=== PATIENT | female | born 1950 | race Caucasian/White ===

== ENCOUNTER 2017-05-14 10:45 | Outpatient (CLI) | payer MEDICARE ==
--- NOTE | 2017-05-15 16:35 | Mammography Report ---
DIGITAL SCREENING MAMMOGRAM: 05/14/2017 CLINICAL INDICATION: A 67-year-old nulliparous patient with history of reduction mammoplasty for scr eening. COMPARISON: 05/2014, 08/2012, 08/2011, 08/2010. TECHNIQUE: Routine CC and MLO projections were obtained of the breasts. The breasts again demonstrate heterogeneously dense fibroglandular parenchyma bilaterally. Postreduc tion changes are stable. Coarse, typically benign calcifications are present. No suspicious masses, clustered microcalcifications, or regions of architectural distortion are identified. IMPRESSION: BENIGN FINDINGS. RECOMMENDATION: ROUTINE ANNUAL SCREENING UNLESS OTHERWISE CLINICALLY INDICATED. BIRADS CATEGORY: 2, BENIGN FINDINGS. STANDARD QUALIFYING STATEMENTS 1. This examination was reviewed with the aid of Computed-Aided Detection (CAD). 2. A negative or benign imaging report should not delay biopsy if clinically suspicious findings are present. Consider surgical consultation if warranted. More than 5% of cancers are not identified b y imaging. 3. Dense breasts may obscure an underlying neoplasm. JOB #: [id number] EXT JOB #:[id number]
== END 2017-05-14 10:46 | disposition home or self-care (01) ==
LOC: DI 10:45
PROVIDERS: ATTEND Family Medicine
DX: Z12.39 Encounter for other screening for malignant neoplasm of breast (principal)
CPT/HCPCS: 77067

== ENCOUNTER 2018-09-09 10:53 | Outpatient (CLI) | payer MEDICARE ==
--- NOTE | 2018-09-10 08:45 | Mammography Report ---
Reason: SCREENING MAMMO Procedure Date: 09/09/2018 Accession Number: [id number] / [id number] Procedure: SUSIE - Screening Mammo Dig Bilat CPT Code: FULL RESULT: EXAM: Screening Mammo Dig Bilat DATE: 09/09/2018 11:31 AM CLINICAL HISTORY: 68 year-old nulliparous female. TECHNIQUE: Bilateral CC and MLO views were obtained. COMPARISON: 05/14/2017, 05/31/2014, 09/16/2012, 08/13/2011. FINDINGS: The breasts demonstrate heterogeneously dense fibroglandular parenchyma bilaterally. Coarse typically benign bilateral calcifications are redemonstrated. No suspicious masses, clustered microcalcifications, or regions of architectural distortion are identified. IMPRESSION: Benign findings RECOMMENDATION: Routine annual screening unless otherwise clinically indicated. BIRADS CATEGORY 2: Benign findings STANDARD QUALIFYING STATEMENTS: 1. This examination was not reviewed with the aid of Computer-Aided Detection (CAD). 2. A negative or benign imaging report should not delay biopsy if clinically suspicious findings are present. Consider surgical consultation if warrented. More than 5% of cancers are not identified by imaging. 3. Dense breasts may obscure an underlying neoplasm. 4. This examination was reviewed without the aid of 3D breast imaging (tomosynthesis).
== END 2018-09-09 10:54 | disposition home or self-care (01) ==
LOC: DI 10:53
DX: Z12.31 Encounter for screening mammogram for malignant neoplasm of breast (principal)
CPT/HCPCS: 77067

== ENCOUNTER 2019-10-11 07:47 | Outpatient (CLI) | payer MEDICARE ==
--- NOTE | 2019-10-11 08:26 | Mammography Report ---
Reason: ROUTINE MAMMO Procedure Date: 10/11/2019 Accession Number: [id number] / [id number] Procedure: SUSIE - Screening Mammo w/Dariel CPT Code: Final Report FULL RESULT: EXAM: Screening Mammo w/Dariel DATE: 10/11/2019 8:16 AM CLINICAL HISTORY: Routine screening. No reported personal or family history of breast cancer. TECHNIQUE: (B) - Bilateral CC and MLO views were obtained. COMPARISON: 09/09/2018 through 09/05/2010. PARENCHYMAL PATTERN: (A) - The breasts demonstrate scattered fibroglandular densities bilaterally. FINDINGS: Bilateral breasts: There are stable bilateral mastopexy changes. There are no suspicious masses, calcifications, or areas of distortion. IMPRESSION: Benign findings. BI-RADS category 2. RECOMMENDATION: (ANNUAL) - Recommend routine annual screening mammography. BI-RADS CATEGORY: (2) - Benign Findings. STANDARD QUALIFYING STATEMENTS: 1. This examination was not reviewed with the aid of Computer-Aided Detection (CAD). 2. A negative or benign imaging report should not preclude biopsy if clinically suspicious findings are present. 3. Dense breasts may obscure an underlying neoplasm. 4. This examination was reviewed with the aid of 3D breast imaging (tomosynthesis).
== END 2019-10-11 07:48 | disposition home or self-care (01) ==
LOC: DI 07:47
DX: Z12.31 Encounter for screening mammogram for malignant neoplasm of breast (principal)
CPT/HCPCS: 77063; 77067

== ENCOUNTER 2021-04-07 20:46 | Outpatient (CLI) | payer MEDICARE | END 2021-04-07 20:47 | disposition critical access hospital (66) | LOC: EMS 20:46 | DX: S09.90XA Unspecified injury of head, initial encounter (principal); R11.0 Nausea; R42 Dizziness and giddiness; M54.2 Cervicalgia; M25.532 Pain in left wrist; W19.XXXA Unspecified fall, initial encounter; Y92.009 Unspecified place in unspecified non-institutional (private) residence as the place of occurrence of the external cause | CPT/HCPCS: A0425; A0427 ==

== ENCOUNTER 2021-04-07 21:20 | Emergency (ER) | payer MEDICARE ==
[2021-04-07 22:24] LABS: BASOPHILS # (AUTO) 0.1 10^3/uL (0.0-0.1); BASOPHILS % (AUTO) 0.9 %; EOSINOPHILS # (AUTO) 0.2 10^3/uL (0.0-0.7); EOSINOPHILS % (AUTO) 2.8 %; HCT - HEMATOCRIT 37.9 % (37.0-47.0); HGB - HEMOGLOBIN 12.5 g/dL (12.0-16.0); LYMPHOCYTES # (AUTO) 1.9 10^3/uL (1.5-3.5); LYMPHOCYTES % (AUTO) 35.7 %; MEAN CORPUSCULAR HEMOGLOBIN 27.6 pg (27.0-31.0); MEAN CORPUSCULAR VOLUME 83.7 fL (81.0-99.0); MEAN PLATELET VOLUME 9.7 fL (7.9-10.8); MONOCYTES # (AUTO) 0.4 10^3/uL (0.0-1.0); MONOCYTES % (AUTO) 6.8 %; NEUTROPHILS # (AUTO) 2.9 10^3/uL (1.5-6.6); NEUTROPHILS % (AUTO) 53.8 %; PLT - PLATELET COUNT 237 10^3/uL (130-450); RED BLOOD COUNT 4.53 10^6/uL (4.20-5.40); RED CELL DISTRIBUTION WIDTH 16.6 % (12.0-15.0); WHITE BLOOD COUNT 5.4 x10^3/uL (4.8-10.8)
[2021-04-07] MEDS ORDERED: lamoTRIgine 25 MG TABLET PO STA (22:54)
--- NOTE | 2021-04-07 22:54 | ED Physician Documentation ---
PD HPI SYNCOPE - Stated complaint Stated Complaint: SYNCOPE/ HEAD LAC - Chief complaint Chief Complaint: Neuro - History obtained from History obtained from: Patient, Family, EMS - History of Present Illness Witnessed: Witnessed Timing - onset: Today Duration: Seconds Preceding symptoms: None Associated symptoms: Nausea / vomiting. No: Seizure, Incontinant of urine, Incontinant of stool Contributing factors: Recent med change Injury occurred: Fell, Head injury, Neck injury. No: Bit tongue Similar symptoms before: Has not had sx before Recently seen: Not recently seen - Additional information Additional information: Previously well 71-year-old female with a seizure disorder has been drinking this evening and she went to go up and walk around the edge of the table and fell and landed hitting her forehead on a chair. She has a contusion and abrasion to her forehead on the left side without laceration. She did not have loss of consciousness and was immediately attended to by her who was in the room but did not see the fall. She did not appear to have seizure. She has not been taking her seizure medicines for the past 3 days. She admits to drinking. She states she is not otherwise ill. Her biggest complaint is some pain in her left wrist. Review of Systems Constitutional: denies: Fever Eyes: denies: Decreased vision Ears: denies: Ear pain Nose: denies: Congestion Throat: denies: Sore throat Cardiac: denies: Chest pain / pressure, Palpitations Respiratory: denies: Dyspnea, Cough GI: reports: Nausea, Vomiting. denies: Abdominal Pain, Diarrhea : denies: Dysuria, Frequency Skin: denies: Rash Musculoskeletal: reports: Neck pain, Extremity pain, Joint pain, Joint swelling. denies: Back pain Neurologic: denies: Generalized weakness, Focal weakness, Numbness PD PAST MEDICAL HISTORY - Past Medical History Past Medical History: Yes Cardiovascular: None Respiratory: None Neuro: Seizure disorder Endocrine/Autoimmune: HyPOthyroidism GI: None [employer]: None : None Psych: Depression, Anxiety Musculoskeletal: None Derm: None - Past Surgical History Past Surgical History: Yes Ortho: Hip replacement /[employer]: Other HEENT: Tonsil/Adenoidectomy, Other - Present Medications Home Medications: Ambulatory Orders Medication Instructions Recorded Confirmed Aspirin [Aspir 81] 81 mg ORAL DAILY 05/06/14 04/07/21 Levothyroxine [Synthroid] 75 mcg ORAL DAILY 05/06/14 04/07/21 Escitalopram [Lexapro] 10 mg PO DAILY 04/07/21 04/07/21 Lacosamide [Vimpat] 100 mg PO BID 04/07/21 04/07/21 - Allergies Allergies/Adverse Reactions: Allergies Allergy/AdvReac Type Severity Reaction Status Date / Time lamotrigine [From Lamictal] Allergy Unknown Verified 04/07/21 22:58 Penicillins Allergy Hives Verified 04/07/21 21:35 Sulfa (Sulfonamide Allergy Hives Verified 04/07/21 21:35 Antibiotics) - Social History Does the pt smoke?: No Smoking Status: Never smoker Does the pt drink ETOH?: Yes Does the pt have substance abuse?: No - Immunizations Immunizations are current?: Yes - POLST Patient has POLST: No PD ED PE NORMAL - Vitals Vital signs reviewed: Yes (Hypertensive) - General General: Alert and oriented X 3, No acute distress, Well developed/nourished - HEENT HEENT: PERRL, EOMI, Other (There is an abrasion to the left scientology. There is no crepitance or step-off.) - Neck Neck: Supple, no meningeal sign, Other (There is pain to the mid cervical spine directly over the bones.There is fair range of motion of the neck.) - Cardiac Cardiac: RRR, No murmur - Respiratory Respiratory: No respiratory distress, Clear bilaterally - Abdomen Abdomen: Soft, Non tender - Back Back: No CVA TTP, No spinal TTP - Derm Derm: Normal color, Warm and dry, No rash - Extremities Extremities: Other (There is swelling and tenderness to the dorsal wrist on the left side there is pain to the anatomic snuffbox and the distal neurovascular components are intact. 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, No motor deficit, No sensory deficit, Normal speech Eye Opening: Spontaneous Motor: Obeys Commands Verbal: Oriented GCS Score: 15 - Psych Psych: Normal mood, Normal affect Results - Vitals Vitals: Vital Signs - 24 hr 04/07/21 04/07/21 04/07/21 21:20 21:57 22:10 Temperature 35.7 C L Heart Rate 69 67 60 Respiratory 14 15 16 Rate Blood Pressure 137/93 H 136/84 H 126/73 O2 Saturation 100 100 100 04/07/21 04/07/21 04/07/21 22:47 23:00 23:35 Temperature 364 C H 36.5 C Heart Rate 64 60 61 Respiratory 19 16 12 Rate Blood Pressure 122/75 122/79 122/79 O2 Saturation 100 100 100 Oxygen O2 Source Room air - EKG (time done) 2127 Rate: Rate (enter#) (59) Rhythm: NSR Ischemia: Normal ST segments Compare to prior EKG: Old EKG unavailable Computer interpretation: Agree with computer - Labs Labs: Laboratory Tests 04/07/21 04/07/21 04/07/21 22:18 22:18 22:18 WBC 5.4 RBC 4.53 Hgb 12.5 Hct 37.9 MCV 83.7 MCH 27.6 MCHC 33.0 RDW 16.6 H Plt Count 237 MPV 9.7 Neut # (Auto) 2.9 Lymph # (Auto) 1.9 [place] # (Auto) 0.4 Eos # (Auto) 0.2 Baso # (Auto) 0.1 Absolute Nucleated RBC 0.00 Nucleated RBC % 0.0 Sodium 138 Potassium 3.5 Chloride 101 Carbon Dioxide 22 Anion Gap 15.0 H BUN 19 Creatinine 0.8 Estimated GFR (MDRD) 71 L Glucose 97 Calcium 9.1 Total Bilirubin 0.5 AST 26 ALT 17 Alkaline Phosphatase 67 Troponin I High Sens 4.5 Total Protein 6.7 Albumin 4.2 Globulin 2.5 Albumin/Globulin Ratio 1.7 Lipase 940 H Ethyl Alcohol 04/07/21 22:18 WBC RBC Hgb Hct MCV MCH MCHC RDW Plt Count MPV Neut # (Auto) Lymph # (Auto) [place] # (Auto) Eos # (Auto) Baso # (Auto) Absolute Nucleated RBC Nucleated RBC % Sodium Potassium Chloride Carbon Dioxide Anion Gap BUN Creatinine Estimated GFR (MDRD) Glucose Calcium Total Bilirubin AST ALT Alkaline Phosphatase Troponin I High Sens Total Protein Albumin Globulin Albumin/Globulin Ratio Lipase Ethyl Alcohol 182.5 - Rads (name of study) CT head without Radiology: Prelim report reviewed (Impression: No acute hemorrhage.), EMP read indepedently, See rad report CT cervical spine Radiology: Prelim report reviewed (Impression: No definite acute fractures.), EMP read indepedently, See rad report Left wrist Radiology: Prelim report reviewed (Impression: Fractures of the distal radius and ulnar styloid.), EMP read indepedently, See rad report Procedures - Splint (location) left wrist Splint applied by: Tech Type of splint: Fiberglass, Volar cock up Other: Patient tolerated well, No complications, Neurovascular intact PD MEDICAL DECISION MAKING - ED course Complexity details: reviewed results, re-evaluated patient, considered differential, d/w patient ED course: 71-year-old female has taken a fall while intoxicated and she has broken her left wrist. She did contused her head she had some vomiting here in the emergency department and a CT scan of the head and neck were obtained without evidence of fracture or dislocation. There was a question about seizure and they patient's indicates he believes this was a fall and not syncope or a seizure. No evidence of intracranial hemorrhage. She is placed into a volar splint and instructed to follow-up with orthopedics for casting within the week. Departure - Departure Disposition: 01 Home, Self Care Clinical Impression: Concussion Qualifiers: Encounter type: initial encounter Loss of consciousness presence/duration: without LOC Qualified Code(s): S06.0X0A - Concussion without loss of consciousness, initial encounter Cervical strain, acute Qualifiers: Encounter type: initial encounter Qualified Code(s): S16.1XXA - Strain of muscle, fascia and tendon at neck level, initial encounter Wrist fracture, left Qualifiers: Encounter type: initial encounter Fracture type: closed Qualified Code(s): S62.102A - Fracture of unspecified carpal bone, left wrist, initial encounter for closed fracture Condition: Stable Instructions: ED Concussion, ED Sprain Strain Neck, ED Fx Wrist General Follow-Up: Sundeep Johnston MD [Provider Admit Priv/Credential] - Katelynn Lentz MD [Primary Care Provider] - Discharge Date/Time: 04/07/21 23:35
[2021-04-07 22:58] LABS: ALBUMIN 4.2 g/dL (3.2-5.5); ALBUMIN/GLOBULIN RATIO 1.7 (1.0-2.2); BILIRUBIN,TOTAL 0.5 mg/dL (0.2-1.0); CALCIUM 9.1 mg/dL (8.5-10.3); CREATININE 0.8 mg/dL (0.4-1.0); POTASSIUM 3.5 mmol/L (3.5-5.0); TOTAL PROTEIN 6.7 g/dL (6.7-8.2)
[2021-04-07 23:05] VITALS: BP 122/79
--- NOTE | 2021-04-08 08:15 | XRAY Report ---
PROCEDURE: Wrist 4 View LT INDICATIONS: FOOSH dorsal pain pain in snuffbox TECHNIQUE: 4 views of the wrist were acquired. COMPARISON: None FINDINGS: Bones: There is a mildly displaced, comminuted, irregular fracture seen of the distal radius, with mi ld volar angulation. There is intra-articular involvement. There is a mildly displaced ulnar styloid fracture also seen. Focal degenerative change is seen involving the carpometacarpal joint, with milder degenerative jj es seen elsewhere. No suspicious bony lesions. Scaphoid view: No scaphoid fractures are seen. Soft tissues: No suspicious soft tissue calcifications. IMPRESSION: Comminuted, intra-articular fracture of the distal radius, with mild volar angulation. A small accompanying ulnar styloid fracture is also seen. Note: No significant discrepancy from the preliminary report. Reviewed by: Vega Washington MD on 04/08/2021 7:13 AM JOSE ROBERTO Approved by: Vega Washington MD on 04/08/2021 7:13 AM JOSE ROBERTO Station ID: [id number]
--- NOTE | 2021-04-08 08:22 | CT Report ---
PROCEDURE: CERVICAL SPINE WO INDICATIONS: head injury neck pain TECHNIQUE: Noncontrast 3 mm thick sections acquired from the skull base to the T4 level. Sagittal and coronal r eformats were then constructed. For radiation dose reduction, the following was used: automated exp osure control, adjustment of mA and/or kV according to patient size. COMPARISON: Correlation is made with the accompanying head CT, 04/07/2021. FINDINGS: Image quality: Motion artifact is noted. Bones: No fractures or dislocations. Visualized superior ribs are intact. Degenerative changes are seen, with at least moderate disc space narrowing at C4-C5 and C5-C6. Focal degenerative change can also be seen involving the C1-C2 interface anteriorly. Milder degenerative ch anges are seen elsewhere. Soft tissues: Prevertebral soft tissues are normal in thickness. No paravertebral hematomas. No ap ical pneumothoraces. IMPRESSION: No fracture can be seen, although this study is limited by motion artifact. Degenerative changes are seen, which are worst inferiorly. Note: No significant discrepancy from the preliminary report. Reviewed by: Vega Washington MD on 04/08/2021 7:21 AM JOSE ROBERTO Approved by: Vega Washington MD on 04/08/2021 7:21 AM JOSE ROBERTO Station ID: [id number]
--- NOTE | 2021-04-08 08:36 | CT Report ---
PROCEDURE: HEAD WO INDICATIONS: Head injury, vomiting TECHNIQUE: Noncontrast 4.5 mm thick angled axial sections acquired from the foramen magnum to the vertex. For r adiation dose reduction, the following was used: automated exposure control, adjustment of mA and/or kV according to patient size. COMPARISON: None. FINDINGS: Image quality: Excellent. CSF spaces: Basal cisterns are patent. No extra-axial fluid collections. Ventricles are normal in size and shape. Brain: No midline shift. No intracranial masses or hemorrhage. Vega-white matter interface is norm al. Mild global cerebral volume loss and chronic microvascular ischemic changes. Skull and face: Calvarium and visualized facial bones are intact, without suspicious lesions. Sinuses: Visualized sinuses and mastoids are clear. IMPRESSION: No acute intracranial finding. No significant change from preliminary report. Reviewed by: Caden Stephenson MD on 04/08/2021 8:35 AM PDT Approved by: Caden Stephenson MD on 04/08/2021 8:35 AM PDT Station ID: [id number]
== END 2021-04-07 23:35 | disposition home or self-care (01) ==
LOC: EDUNIT# → ED 21:20 → SUPCPDRO 21:20 → ED 23:35
DX: S52.572A Other intraarticular fracture of lower end of left radius, initial encounter for closed fracture (principal); S16.1XXA Strain of muscle, fascia and tendon at neck level, initial encounter; S06.0X0A Concussion without loss of consciousness, initial encounter; W18.30XA Fall on same level, unspecified, initial encounter; W22.03XA Walked into furniture, initial encounter; Y93.01 Activity, walking, marching and hiking; Y92.009 Unspecified place in unspecified non-institutional (private) residence as the place of occurrence of the external cause
CPT/HCPCS: 29125; 36415; 70450; 72125; 73110; 80053; 83690; 84484; 85025; 93005; 99284; G0480; 80320

== ENCOUNTER 2022-04-08 08:00 | Outpatient (CLI) | payer MEDICARE ==
--- NOTE | 2022-04-08 14:28 | XRAY Report ---
PROCEDURE: Toe(s) LT INDICATIONS: PAIN IN LEFT TOES TECHNIQUE: AP view of the foot and 2 views of the second through fourth toes. COMPARISON: None. FINDINGS: Bones: No displaced intra-articular fracture at the base of the second middle phalanx. A minimally di splaced articular fracture is also seen at the medial portion of the second proximal phalangeal head. Scattered degenerative changes are seen in the interphalangeal joints of the toes. No suspicious bon y lesions. Soft tissues: No suspicious soft tissue densities. IMPRESSION: Minimally displaced intra-articular fractures at the base of the second middle phalanx and the second proximal phalangeal head, both extending into the proximal interphalangeal joint. Reviewed by: Todd Gerard MD on 04/08/2022 2:27 PM PDT Approved by: Todd Gerard MD on 04/08/2022 2:27 PM PDT Station ID: [id number]
--- NOTE | 2022-04-08 14:30 | XRAY Report ---
PROCEDURE: Foot 3 View LT INDICATIONS: LEFT FOOT PAIN TECHNIQUE: 3 views of the foot were acquired. COMPARISON: Left toe radiographs performed the same time.. FINDINGS: Bones: Generalized osteopenia. Minimally displaced fractures are seen at the second middle phalangea l base and the second proximal phalangeal head, slightly better demonstrated on the toe radiographs p erformed at the same time. No suspicious bony lesions. Scattered degenerative changes are seen throu ghout the interphalangeal joints of the toes. Mild first metatarsophalangeal joint osteoarthrosis. Soft tissues: Mild soft tissue edema in the second toe. IMPRESSION: Minimally displaced fractures of the second proximal phalangeal head and second middle phalangeal bas e extending into the second proximal interphalangeal joint. Reviewed by: Todd Gerard MD on 04/08/2022 2:28 PM PDT Approved by: Todd Gerard MD on 04/08/2022 2:28 PM PDT Station ID: [id number]
== END 2022-04-08 23:59 | disposition home or self-care (01) ==
LOC: DI.S 08:00
PROVIDERS: ATTEND Physician Assistant Medical
DX: S92.512A Displaced fracture of proximal phalanx of left lesser toe(s), initial encounter for closed fracture (principal)
CPT/HCPCS: 73660

== ENCOUNTER 2022-08-26 10:01 | Outpatient (CLI) | payer MEDICARE ==
[2022-08-26 15:14] LABS: THYROID STIMULATING HORMONE 2.98 uIU/mL (0.34-5.60)
[2022-08-26 15:16] LABS: FREE T4 (FREE THYROXINE) 0.57 ng/dL (0.58-1.64)
== END 2022-08-26 10:02 | disposition home or self-care (01) ==
LOC: LAB.S 10:01
PROVIDERS: ATTEND Internal Medicine
DX: E03.9 Hypothyroidism, unspecified (principal)
CPT/HCPCS: 36415; 84439; 84443

== ENCOUNTER 2022-12-06 07:00 | Outpatient (CLI) | payer MEDICARE ==
[2022-12-06 19:56] LABS: THYROID STIMULATING HORMONE 4.37 uIU/mL (0.34-5.60)
[2022-12-06 19:58] LABS: FREE T4 (FREE THYROXINE) 0.69 ng/dL (0.58-1.64)
== END 2022-12-06 23:59 | disposition home or self-care (01) ==
LOC: LAB.S 07:00
PROVIDERS: ATTEND Internal Medicine
DX: E03.8 Other specified hypothyroidism (principal)
CPT/HCPCS: 36415; 84439; 84443

== ENCOUNTER 2023-03-13 08:00 | Outpatient (CLI) | payer MEDICARE | END 2023-03-13 23:59 | disposition home or self-care (01) | LOC: LAB.S 08:00 | PROVIDERS: ATTEND Physician Assistant Medical | DX: R35.0 Frequency of micturition (principal); R10.9 Unspecified abdominal pain | CPT/HCPCS: 87086 ==

== ENCOUNTER 2023-06-23 10:08 | Outpatient (CLI) | payer MEDICARE ==
[2023-06-23 15:14] LABS: EOSINOPHILS # (AUTO) 0.2 10^3/uL (0.0-0.7); EOSINOPHILS % (AUTO) 5.1 %; HCT - HEMATOCRIT 42.7 % (37.0-47.0); HGB - HEMOGLOBIN 13.4 g/dL (12.0-16.0); LYMPHOCYTES # (AUTO) 1.9 10^3/uL (1.5-3.5); MEAN CORPUSCULAR HEMOGLOBIN 29.7 pg (27.0-31.0); MEAN CORPUSCULAR HGB CONC 31.4 g/dL (32.0-36.0); MEAN CORPUSCULAR VOLUME 94.7 fL (81.0-99.0); MONOCYTES # (AUTO) 0.3 10^3/uL (0.0-1.0); MONOCYTES % (AUTO) 7.9 %; NEUTROPHILS # (AUTO) 1.5 10^3/uL (1.5-6.6); NEUTROPHILS % (AUTO) 38.7 %; PLT - PLATELET COUNT 231 10^3/uL (130-450); RED BLOOD COUNT 4.51 10^6/uL (4.20-5.40); RED CELL DISTRIBUTION WIDTH 13.1 % (12.0-15.0); WHITE BLOOD COUNT 3.9 x10^3/uL (4.8-10.8)
[2023-06-23 15:39] LABS: ALBUMIN 4.4 g/dL (3.2-5.5); ALBUMIN/GLOBULIN RATIO 1.7 (1.0-2.2); ALKALINE PHOSPHATASE 59 IU/L (42-121); ALT ALANINE AMINOTRANSFERASE 14 IU/L (10-60); AST ASPARTATE AMINOTRANSFERASE 18 IU/L (10-42); BILIRUBIN,TOTAL 0.4 mg/dL (0.2-1.0); BUN - BLOOD UREA NITROGEN 18 mg/dL (6-20); CALCIUM 9.8 mg/dL (8.5-10.3); CARBON DIOXIDE - CO2 32 mmol/L (21-32); CHLORIDE 104 mmol/L (101-111); CHOLESTEROL 162 mg/dL; CREATININE 0.8 mg/dL (0.6-1.3); GFR - MDRD 71 (>89); GLUCOSE 89 mg/dL (74-104); HDL CHOLESTEROL 81 mg/dL; LDL CHOLESTEROL,CALCULATED 63 mg/dL; LDL/HDL RATIO 0.8 (<4.4); POTASSIUM 4.4 mmol/L (3.5-4.5); SODIUM 140 mmol/L (135-145); TRIGLYCERIDES 88 mg/dL (48-352); VLDL CHOLESTEROL 18 mg/dL
== END 2023-06-23 10:09 | disposition home or self-care (01) ==
LOC: LAB.S 10:08
PROVIDERS: ATTEND Internal Medicine
DX: I10 Essential (primary) hypertension (principal); R35.0 Frequency of micturition; R10.9 Unspecified abdominal pain; E78.5 Hyperlipidemia, unspecified
CPT/HCPCS: 36415; 80053; 80061; 83721; 85025

== ENCOUNTER 2024-04-20 08:00 | Outpatient (CLI) | payer MEDICARE ==
[2024-04-20 20:16] LABS: FECAL OCCULT BLOOD (FIT) POSITIVE (NEGATIVE)
== END 2024-04-20 23:59 | disposition home or self-care (01) ==
LOC: LAB.S 08:00
PROVIDERS: ATTEND Emergency Medicine
DX: R19.7 Diarrhea, unspecified (principal)
CPT/HCPCS: 82274; 87045; 87046; 87177; 87209; 87329; 87427; 87493

== ENCOUNTER 2024-04-21 07:38 | Outpatient (CLI) | payer MEDICARE ==
[2024-04-21 14:33] LABS: BASOPHILS % (AUTO) 0.7 %; EOSINOPHILS # (AUTO) 0.1 10^3/uL (0.0-0.7); EOSINOPHILS % (AUTO) 1.4 %; HCT - HEMATOCRIT 43.9 % (37.0-47.0); HGB - HEMOGLOBIN 13.7 g/dL (12.0-16.0); LYMPHOCYTES # (AUTO) 1.9 10^3/uL (1.5-3.5); LYMPHOCYTES % (AUTO) 33.3 %; MEAN CORPUSCULAR HEMOGLOBIN 29.7 pg (27.0-31.0); MEAN CORPUSCULAR HGB CONC 31.2 g/dL (32.0-36.0); MEAN CORPUSCULAR VOLUME 95.2 fL (81.0-99.0); MONOCYTES # (AUTO) 0.6 10^3/uL (0.0-1.0); MONOCYTES % (AUTO) 9.7 %; NEUTROPHILS # (AUTO) 3.1 10^3/uL (1.5-6.6); NEUTROPHILS % (AUTO) 54.7 %; PLT - PLATELET COUNT 228 10^3/uL (130-450); RED BLOOD COUNT 4.61 10^6/uL (4.20-5.40); RED CELL DISTRIBUTION WIDTH 14.1 % (12.0-15.0); WHITE BLOOD COUNT 5.7 x10^3/uL (4.8-10.8)
[2024-04-21 14:45] LABS: ALBUMIN 4.5 g/dL (3.2-5.5); ALBUMIN/GLOBULIN RATIO 1.9 (1.0-2.2); BILIRUBIN,TOTAL 0.4 mg/dL (0.2-1.0); CALCIUM 9.6 mg/dL (8.5-10.3); CREATININE 0.9 mg/dL (0.6-1.3); POTASSIUM 3.9 mmol/L (3.5-4.5); TOTAL PROTEIN 6.9 g/dL (6.4-8.9)
== END 2024-04-21 07:39 | disposition home or self-care (01) ==
LOC: LAB.S 07:38
PROVIDERS: ATTEND Emergency Medicine
DX: R19.7 Diarrhea, unspecified (principal)
CPT/HCPCS: 36415; 80053; 85025

== ENCOUNTER 2024-06-01 08:00 | Outpatient (CLI) | payer MEDICARE | END 2024-06-01 23:59 | disposition home or self-care (01) | LOC: LAB.N 08:00 | PROVIDERS: ATTEND Physician Assistant | DX: N39.0 Urinary tract infection, site not specified (principal) | CPT/HCPCS: 87077; 87086; 87181 ==

== ENCOUNTER 2024-06-08 08:22 | Outpatient (CLI) | payer MEDICARE | END 2024-06-08 08:23 | disposition home or self-care (01) | LOC: LAB.S 08:22 | PROVIDERS: ATTEND Internal Medicine | DX: A49.8 Other bacterial infections of unspecified site (principal) | CPT/HCPCS: 87493 ==

== ENCOUNTER 2024-07-10 08:00 | Outpatient (CLI) | payer MEDICARE | END 2024-07-10 23:59 | disposition home or self-care (01) | LOC: LAB 08:00 | PROVIDERS: ATTEND Physician Assistant | DX: N39.0 Urinary tract infection, site not specified (principal) | CPT/HCPCS: 87086 ==